=== PATIENT | female | born 1960 | race Caucasian/White ===

== ENCOUNTER 2023-11-05 19:43 | Emergency (ER) | payer BC ==
[~2023-11-05] VITALS: Ht 160 cm; Wt 64.4 kg
[2023-11-05] MEDS ORDERED: TETRACAINE HCL 0.5% 4 ML OPHTH SOLN OP SCH (20:00)
[2023-11-05] MEDS ORDERED: FLUORESCEIN SODIUM 1 STRIP STRIP OP SCH (20:00)
[2023-11-05 20:14] VITALS: BP 167/88; PULSE 74; RESP 16; O2SAT 98
[2023-11-05] MEDS ORDERED: NEO/3.5O OS (21:05)
[2023-11-05] MEDS: ERYTHROMYCIN BASE 0.5% OPHTH OINT 1 GM TUBE OU SCH (21:14)
[2023-11-05] MEDS: TETRACAINE HCL 0.5% 4 ML OPHTH SOLN OP ONE (21:17)
[2023-11-05] MEDS: FLUORESCEIN SODIUM 1 STRIP STRIP OP ONE (21:18)
[2023-11-05] MEDS: TETRACAINE HCL 0.5% 4 ML OPHTH SOLN ONE (21:18)
[2023-11-05] MEDS: FLUORESCEIN SODIUM 1 STRIP STRIP ONE (21:18)
[2023-11-05] MEDS: ERYTHROMYCIN BASE 0.5% OPHTH OINT 1 GM TUBE ONE (21:19)
[2023-11-05] MEDS ORDERED: NEO/POLYMYX B SULF/DEXAMETH 3.5 GM TUBE OS ONE (21:30)
== END 2023-11-05 21:20 | disposition home or self-care (01) ==
LOC: EDH 19:43
DX: H11.32 Conjunctival hemorrhage, left eye (principal); I10 Essential (primary) hypertension; Z90.89 Acquired absence of other organs; Z90.710 Acquired absence of both cervix and uterus; Z98.890 Other specified postprocedural states

== ENCOUNTER 2025-02-12 20:19 | Emergency (ER) | payer SELFPAY ==
[~2025-02-12] VITALS: Ht 157.5 cm; Wt 62.1 kg
[~2025-02-12 20:19] MED LIST: NEO/3.5O OS
--- NOTE | 2025-02-12 20:53 | ERN ---
General Chief Complaint: Eye Problems Stated Complaint: INJURED LT EYE Time Seen by MD: 20:20 Source: patient History of Present Illness Initial Comments Patient is a 64-year-old female who had some netting over her head and face and scraped her left eye with a piece of cardboard. This occurred four days ago. Since then the patient has noticed increasing scleral injection. This morning patient noticed some greenish yellowish discharge on her eyelashes this morning when she washed her face. She also reports increased generalized pain in the area of her left eye she can not point to a particular area that is more painful than the other. There was no swelling erythema. No fevers. Her eye is not painful. She states she has no upper respiratory tract infections no sinus infections. No visual changes. She comes in for evaluation. Allergies: Coded Allergies: No Known Allergies (Unverified Allergy, Unknown, 11/05/23) Home Meds Active Scripts Tani/Polymyx B Sulf/Dexameth (Maxitrol Eye Ointment) 3.5 Gm Oint, 0.5 IN OS QID for 7 Days, #3.5 GM Prov:SARAH UREÑALUPE [employer] SCIENTIST 11/05/23 Past Medical History Past Medical History: No Pertinent History, Hypertension Past Surgical History: Hysterectomy Surgical History Other: FOOT, CATARACTS Family History Family History: Negative Social History Social History: Negative, Lives with family Female( History) History: Not Applicable ROS Dictation Review of systems is otherwise negative. EENTM: (+) eye pain (Patient reports some greenish yellowish junk on her eyelids when she woke up this morning.) Physical Exam General Appearance: (+) no apparent distress Orientation: (+) alert, (+) oriented x 3 Head/Face Trauma: No Eye: bilateral eye normal inspection, bilateral eye PERRL, bilateral eye EOMI Eyes Comment Patient does have scleral injection on her left eye. No swelling redness or warmth surrounding her left eye socket, the patient does report pain in that area. MDM With the patient's left eye with a fluorescein dye and Wood's lamp and I do see a corneal defect at the 5 o'clock position of her left cornea and also to punctate corneal defects on a day 11 o'clock position of her left eye. I will give her a prescription for Ocuflox listen. ED Course Orders Procedure Category Date Status Time Tetracaine Hcl PHA 02/12/25 Complete (Pontocaine 0.5% 21:00 Fluorescein Sodium PHA 02/12/25 Complete (Jeyei-G-Fehkz At) 21:00 Current Medications Medications (Trade) Dose Ordered Sig/Thong Route PRN Reason Start Time Stop Time Status Last Admin Dose Admin Fluorescein Sodium (Dqnon-V-Tlfej At) 1 strip ONCE ONCE OP 02/12/25 21:00 02/12/25 21:01 DC 02/12/25 20:58 Tetracaine HCl (Pontocaine 0.5% Ophth Soln) 1 OR 2 DROPS ONCE ONCE OP 02/12/25 21:00 02/12/25 21:01 DC 02/12/25 20:58 Vital Signs Date Time Temp Pulse Resp B/P (MAP) Pulse Ox O2 Delivery O2 Flow Rate FiO2 02/12/25 20:24 98.1 72 20 155/97 97 Room Air DX & DISP Disposition: Discharge Departure Impression: Primary Impression: Defect of left cornea Additional Impression: Scleral injection Condition: Stable Scripts Ofloxacin (Ocuflox 0.3% Ophth Soln) 0.3 % Opsol 1 DROP OS QID for injection for 7 Days, #5 ML 0 Refills Prov: JAMES WANG MD 02/12/25 Additional Instructions: You have a corneal defect in the 5:00 a.m. and also 11:00 a.m. positions of your left eye. I have given you a prescription for antibiotic eye drops. If your eye symptoms do not improve in the next day or two or you feel you have loss of vision purulent drainage or increased pain or redness surrounding the eye or fevers please see your [employer] member urgently or go to a hospital that has an ophthalmology service urgently. Your symptoms should clear within a week. Referrals: SELF,REFERRAL (PCP) JAMES WANG MD Feb 12, 2025 20:53
[2025-02-12] MEDS: FLUORESCEIN SODIUM 1 STRIP STRIP OP ONE (20:58)
[2025-02-12] MEDS: TETRACAINE HCL 0.5% 4 ML OPHTH SOLN OP ONE (20:58)
[2025-02-12] MEDS ORDERED: OFLO35OS OS (21:24)
[2025-02-12 21:34] VITALS: BP 168/89; PULSE 63; RESP 17; TEMP 97.5; O2SAT 99
== END 2025-02-12 21:39 | disposition home or self-care (01) ==
LOC: EDH 20:19
DX: H15.89 Other disorders of sclera (principal); H18.892 Other specified disorders of cornea, left eye; Z90.710 Acquired absence of both cervix and uterus
CPT/HCPCS: 99283